=== PATIENT | male | born 1950 | race Caucasian/White ===

== ENCOUNTER 2018-02-16 19:41 | Inpatient (IN) | payer MEDICARE, MEDICAID ==
[~2018-02-16] VITALS: Ht 165.1 cm; Wt 66.7 kg
--- NOTE | 2018-02-16 20:07 | NUR ---
PT BIB PRIVATE AMBULANCE FROM [facility]. PT HERE FOR MEDICAL CLEARANCE. PT IS ON 5150 HOLD GRAVELY DISABLED. UPON ARRIVAL, PT IS UNCOOPERATIVE, GETTING OUT OF BED, AND URINATING ON FLOOR. PT YELLING + SCREAMING AND IS COMBATIVE [facility] STAFF MEMBERS. VSS.
[2018-02-16] MEDS ORDERED: diphenhydrAMINE 50 MG/1 ML VIAL ONE (20:18)
--- NOTE | 2018-02-16 20:18 | NUR ---
PT PLACED ON BILATERAL WRIST RESTRAINTS. PT UNCOOPERATIVE/COMBATIVE WITH STAFF MEMBERS. NO SITTER AVAILABLE FOR PT.
[2018-02-16] MEDS ORDERED: LORAZEPAM 2 MG/1 ML VIAL ONE (20:19)
[2018-02-16] MEDS ORDERED: HALOPERIDOL LACTATE 5 MG/1 ML VIAL ONE (20:19)
[2018-02-16] MEDS ORDERED: HALOPERIDOL LACTATE 5 MG/1 ML VIAL IM ONE (20:30)
[2018-02-16] MEDS ORDERED: LORAZEPAM 2 MG/1 ML VIAL IM ONE (20:30)
[2018-02-16] MEDS ORDERED: diphenhydrAMINE 50 MG/1 ML VIAL IM ONE (20:30)
[2018-02-16 20:33] LABS: BASOPHILS % (AUTO) 0.5 % (0.0-2.0); EOSINOPHILS # (AUTO) 0.4 K/uL (0.0-0.7); EOSINOPHILS % (AUTO) 5.9 % (0.0-7.0); HEMATOCRIT 36.1 % (36.7-47.1); HEMOGLOBIN 11.8 g/dL (12.5-16.3); LYMPHOCYTES # (AUTO) 2.1 K/uL (20.0-40.0); LYMPHOCYTES % (AUTO) 32.8 % (20.5-51.5); MEAN CORPUSCULAR HEMOGLOBIN 30.4 uug (23.8-33.4); MEAN CORPUSCULAR HGB CONC 33 g/dL (32.5-36.3); MEAN CORPUSCULAR VOLUME 92.6 fL (73.0-96.2); MONOCYTES # (AUTO) 0.5 K/uL (2.0-10.0); NEUTROPHILS # (AUTO) 3.5 K/uL (1.8-8.9); NEUTROPHILS % (AUTO) 53.8 % (38.5-71.5); PLATELET COUNT (AUTO) 171 K/uL (152-348); WHITE BLOOD COUNT (AUTO) 6.5 K/uL (3.6-10.2)
[2018-02-16 20:42] LABS: CARBON DIOXIDE 30 mmol/L (21-32); CHLORIDE 105 mmol/L (98-107); CREATININE 0.9 mg/dL (0.6-1.3); GLUCOSE 128 mg/dL (74-106); POTASSIUM 4.2 mmol/L (3.5-5.1); UREA NITROGEN, BLOOD 26 mg/dL (7-18)
[2018-02-16 20:46] LABS: *BILIRUBIN,URIN NEGATIVE (NEGATIVE); *BLOOD, URINE NEGATIVE (NEGATIVE); *CLARITY,URINE CLEAR (CLEAR); *COLOR,URINE YELLOW (YELLOW); *KETONES,URINE NEGATIVE (NEGATIVE); *PROTEIN,URINE NEGATIVE (NEGATIVE); *UROBILINOGEN,URINE 0.2 E.U./dl (NORMAL); ETHANOL < 3 MG/DL (0-0); LEUKOCYTE ESTERASE ,URINE TRACE (NEGATIVE); NITRITE, URINE NEGATIVE (NEGATIVE); PH,URINE 5.5 (5.0-8.0); UGLUCOSE NEGATIVE (NEGATIVE)
[2018-02-16 20:48] LABS: ALANINE AMINOTRANSFERASE 28 U/L (16-63); ALKALINE PHOSPHATASE 82 U/L (50-136); ASPARTATE AMINOTRANSFERASE 16 U/L (15-37); BILIRUBIN,DIRECT 0.1 mg/dL (0.0-0.2); BILIRUBIN,TOTAL 0.4 mg/dL (0.2-1.0)
[2018-02-16 20:49] LABS: ACETAMINOPHEN < 2.0 ug/mL (10-30)
[2018-02-16 20:56] LABS: THYROID STIMULATING HORMONE 1.925 mIU/mL (0.358-3.740)
[2018-02-16 21:14] LABS: *AMPHETAMINE, URINE NEGATIVE (NEGATIVE); *BARBITURATE, URINE NEGATIVE (NEGATIVE); *CANNABINOID, URINE NEGATIVE (NEGATIVE); *COCCAINE, URINE NEGATIVE (NEGATIVE); *OPIATE, URINE NEGATIVE (NEGATIVE); *PHENCYCLIDINE SCREEN,URINE NEGATIVE (NEGATIVE)
--- NOTE | 2018-02-16 21:20 | NUR ---
PAGED [employer] FOR PANEL CALL
[2018-02-16] MEDS ORDERED: MAGN400O6 PO (21:30)
[2018-02-16] MEDS ORDERED: LINA5TAB PO (21:30)
[2018-02-16] MEDS ORDERED: EZET10TA13 PO (21:30)
[2018-02-16] MEDS ORDERED: ASPI81TA31 PO (21:30)
[2018-02-16] MEDS ORDERED: TAMS-3 PO (21:30)
[2018-02-16] MEDS ORDERED: QUET100T PO (21:30)
[2018-02-16] MEDS ORDERED: CHOL500050 PO (21:30)
[2018-02-16] MEDS ORDERED: GLIM1TAB PO (21:30)
[2018-02-16] MEDS ORDERED: LATA2.5D2 LEFTEYE (21:30)
[2018-02-16] MEDS ORDERED: DIVA125C PO ×2 (21:30)
[2018-02-16] MEDS ORDERED: METF10004 PO (21:30)
[2018-02-16] MEDS ORDERED: ACET-2154 PO ×2 (21:30)
[2018-02-16] MEDS ORDERED: METO25TA3 PO (21:30)
[2018-02-16] MEDS ORDERED: ERGO500040 PO (21:30)
[2018-02-16] MEDS ORDERED: BUSP5TAB3 PO (21:30)
[2018-02-16 21:37] LABS: MUCUS,URINE FEW /LPF (0-FEW)
--- NOTE | 2018-02-16 21:58 | NUR ---
PT TAKEN OFF 2 POINT RESTRAINTS. PT RESTING/SLEEPING. VSS. NO ACUTE DISTRESS NOTED.
--- NOTE | 2018-02-16 22:03 | NUR ---
DR. SUDHAKAR HAGEN MD TALKING TO DR. ERVIN CLEMENTS.
--- NOTE | 2018-02-16 22:14 | NUR ---
Pt. admitted to MHU , under care of CLARISA. Belongs List completed. MRSA swab done. Report given to MERE JACKSON
[2018-02-16] MEDS ORDERED: MAG HYDROX/AL HYDROX/SIMETH 30 ML LIQUID UDC PO PRN (23:00)
[2018-02-16] MEDS ORDERED: TEMAZEPAM 7.5 MG CAPSULE PO PRN (23:00)
--- NOTE | 2018-02-17 | NUR ---
ADMISSION NOTES: 67 Y.O. (JAMAICAN-SPEAKING ONLY) MALE BROUGHT TO MHU FROM ER VIA GURNEY, ACCOMPANIED ER STAFF, Pt ON A 5150 HOLD FOR GD. ACCORDING TO THE HOLD, THE MACHINE OPERATOR HOP PICKER AT THE NURSING FACILITY CALLED THE PREVIOUS DAY FOR PET EVALUATION BUT FAMILY REFUSED. TODAY, THE Pt URINATED ON ANOTHER RESIDENT AND THE PSYCHIATRIST, DR. STEWART WHO IS COVERING FOR DR. MARTINEZ, WAS NOTIFIED. FACE TO FACE EVALUATION WAS DONE FOR THIS 67 Y.O. J[place] MALE, WHO HAS HISTORY OF NON-COOPERATION WITH STAFF, AND IS VERBALLY AND PHYSICALLY AGGRESSIVE. BEHAVIOR HAS BEEN PREVIOUSLY MANAGED BUT BEHAVIOR PROBLEMS HAS INCREASED SINCE SEROQUEL WAS DISCONTINUED BY PSYCHIATRIST. Pt IS CONFUSED AND UNABLE TO PROVIDE HISTORY. RN CONCURS WITH THE HOLD. ADVISEMENT AND PATIENT RIGHTS HANDBOOK GIVEN. UPON FACE TO FACE ASSESSMENT, Pt APPEARS TO REFLECT SOME OF THE INFORMATION ON THE HOLD. PER ER NURSE, THE Pt WAS UNCOOPERATIVE IN THE ER AND WAS GIVEN IM INJECTION OF BENADRYL, ATIVAN, AND HALDOL. MEDICATION WAS EFFECTIVE, Pt WAS ASLEEP AND DIFFICULT TO AROUSE UPON ARRIVING TO MHU. Pt WAS UNABLE TO RESPOND TO QUESTIONS. THE NURSE WAS ABLE TO SPEAK TO Pt's DAUGHTER ON THE PHONE, ARISTIDES ALVAREZ , AND WAS ABLE TO OBTAIN SOME INFORMATION REGARDING Pt HISTORY. Pt WAS PREVIOUSLY ADMITTED AT [facility] EARLIER THIS YEAR. Pt BEHAVIOR WAS MANAGED BUT BECAME WORSE AFTER SEROQUEL WAS DISCONTINUED. DURING PHYSICAL ASSESSMENT, NURSE NOTED MULTIPLE SCALY RASHES, DRY WHITE PATCHES, MULTIPLE RED BUMPS ON SKIN. Pt HAS HISTORY OF PSORIASIS AND IS CURRENTLY RECEIVING TREATMENT AT HIS FACILITY. PHOTOS TAKEN AND PLACED IN CHART. Pt APPEARS UNKEMPT, MISSING ALL OF HIS UPPER TEETH, Pt DID NOT COME WITH ANY BELONGINGS, NO DENTURES FOUND. DR. MUELLER AND DR. STEWART WERE BOTH NOTIFIED OF ADMISSION, ORDERS RECEIVED. NO CONTRABANDS WITH Pt, Pt WAS CHANGED BY NURSING STAFF AND SETTLED INTO BED. VS STABLE, NO AGGRESSIVE BEHAVIORS NOTED, NO DISTRESS NOTED, WILL CLOSELY MONITOR Pt BEHAVIOR.
[2018-02-17 07:30] VITALS: BP 124/63
[2018-02-17] MEDS: SULFAMETH/TRIMETH 800/160 MG TABLET PO SCH ×2 (09:15→16:42)
[2018-02-17] MEDS: CLONAZEPAM 0.5 MG TABLET PO PRN ×2 (09:15→14:38)
[2018-02-17] MEDS ORDERED: Medication Not On Formulary EA (Glimepiride (Amaryl) 2 MG) PO SCH (11:15)
[2018-02-17] MEDS: ASPIRIN 81 MG TAB.CHEW PO SCH (12:32)
--- NOTE | 2018-02-17 12:53 | NUR ---
Gps/Rag Baler- Patient is confused, speech incoherent, kept up on his arleen-chair, by the Nurses station, monitored closely for safety, pt. tries to get up from his bed, gait very unsteady, potential for falls. Showered with 2 staff assisting.Patient total care w/ needs, assisted with his meals, patient tries to eat wrapper from his pudding as well as styrofoam ., needed to be supervised or fed. Has difficulty following directions. Meds crushed administered with apple sauce, pt. chew meds. Noted patient sratching noted some red bumps on his thighs and forearms, crusty areas on his knuckels , redness noted
[2018-02-17] MEDS: LINAGLIPTIN 5 MG TABLET PO SCH (14:08)
[2018-02-17] MEDS: LATANOPROST OPHT DROP 2.5 ML BOTTLE LEFTEYE SCH ×2 (14:08→20:23)
--- NOTE | 2018-02-17 14:20 | NUR ---
Gps/Office Executive- Patient's daughter Nicole wilson, will be visiting this pm .
[2018-02-17 15:20] VITALS: BP 110/72
--- NOTE | 2018-02-17 16:20 | NUR ---
Gps/Career Based Intervention Coordinator- Per daughter Nicole, patient does not even recognized her , needing assistance with meals patient does not know what to do with napkin or food place infront of him, difficulty sequencing tasks, tends to lean backwards during ambulation.Meds. were amdministered crushed w/ apple sauce or pudding
[2018-02-17] MEDS: ACETAMINOPHEN 325 MG TABLET PO SCH (16:42)
[2018-02-17] MEDS ORDERED: DEXTROSE 50% 50 ML DISP.SYRIN IV PRN (18:15)
[2018-02-17] MEDS: diphenhydrAMINE 25 MG CAP PO PRN (19:54)
--- NOTE | 2018-02-17 19:55 | NUR ---
RECEIVED PATIENT IN THE HALLWAY SITTING IN A BIA CHAIR NEAR NURSING STATION. HE IS NOTED A/O X 1. HE SPEAKS FARSI AND HE APPEARS NOT TO UNDERSTAND ARMENIAN. HE IS NOTED HYPERVERBAL, ANXIOUS, RESTLESS AND HE IS ALSO NOTED SCRATCHING HIS LEGS. BENADRYL 25MG PO PRN WAS GIVEN FOR ITCHINESS. SAFETY WAS EMPHASIS. WILL CONTINUE TO MONITOR CLOSELY.
[2018-02-17] MEDS: BLOOD SUGAR DIAGNOSTIC 1 EACH STRIP VI SCH (20:03)
[2018-02-17] MEDS: EZETIMIBE 10 MG TABLET PO SCH (20:23)
[2018-02-17] MEDS: TAMSULOSIN HCL 0.4 MG CAP.SR.24H PO SCH (20:23)
[2018-02-17 20:45] VITALS: BP 110/72
[2018-02-17] MEDS ORDERED: PERMETHRIN 5% CREAM 60 GM TUBE TP ONE (21:00)
--- NOTE | 2018-02-17 21:50 | NUR ---
PATIENT NOTED AWAKE, HYPERVERBAL. TEMAZEPAM 7.5MG PO PRN WAS GIVEN FOR INSOMNIA. WILL CONTINUE TO MONITOR.
[2018-02-17] MEDS ORDERED: DIVALPROEX 250 MG TABLET.DR PO SCH (23:30)
--- NOTE | 2018-02-17 23:55 | NUR ---
PER DR. MACKEY, NEW ORDER TO ADMINISTER SEROQUEL 100MG TID AND EXELON 1.5MG PO QHS. FIRST DOSE WERE GIVEN. WILL CONTINUE TO MONITOR.
[2018-02-17] MEDS: QUETIAPINE FUMARATE 100 MG TABLET PO SCH (23:59)
[2018-02-18] MEDS: RIVASTIGMINE TARTRATE 1.5 MG CAPSULE PO SCH ×3 (00:06→21:00)
--- NOTE | 2018-02-18 02:30 | NUR ---
PATIENT IN BED, ELIMITE LOTION WAS APPLIED DIRECTED. WILL CONTINUE TO MONITOR.
[2018-02-18] MEDS: BLOOD SUGAR DIAGNOSTIC 1 EACH STRIP VI SCH ×4 (07:19→21:54)
[2018-02-18 07:30] VITALS: BP 90/55
[2018-02-18] MEDS: METOPROLOL SUCCINATE XL 25 MG TAB.SR.24H PO SCH (08:52)
[2018-02-18] MEDS: GLIMEPIRIDE 2 MG TABLET PO SCH (08:52)
[2018-02-18] MEDS: ASPIRIN 81 MG TAB.CHEW PO SCH (08:53)
[2018-02-18] MEDS: ACETAMINOPHEN 325 MG TABLET PO SCH ×2 (08:53→17:25)
[2018-02-18] MEDS: QUETIAPINE FUMARATE 100 MG TABLET PO SCH ×3 (08:53→17:26)
[2018-02-18] MEDS: SULFAMETH/TRIMETH 800/160 MG TABLET PO SCH ×2 (08:53→17:26)
[2018-02-18] MEDS: LINAGLIPTIN 5 MG TABLET PO SCH (08:55)
[2018-02-18] MEDS: LATANOPROST OPHT DROP 2.5 ML BOTTLE LEFTEYE SCH ×2 (08:56→21:00)
[2018-02-18] MEDS: INSULIN REGULAR, HUMAN 300 UNIT/3 ML VIAL SQ PRN (12:13)
[2018-02-18] MEDS: diphenhydrAMINE 25 MG CAP PO PRN (14:27)
[2018-02-18] MEDS: CLONAZEPAM 0.5 MG TABLET PO PRN (15:03)
[2018-02-18 15:52] VITALS: BP 102/61
[2018-02-18] MEDS: VALPROIC ACID 250 MG CAPSULE PO SCH (17:37)
--- NOTE | 2018-02-18 18:15 | NUR ---
Gps/Service Department Manager- Patient resistive to his care, rashes in his inner thighs patches of bumps upper back and lower ext. Incontinent of large amount of urine x 6 , needed 3 staff to assist pt. in cleaning and hygiene. tries to hit staff during his care.
[2018-02-18] MEDS: TAMSULOSIN HCL 0.4 MG CAP.SR.24H PO SCH (21:00)
[2018-02-18] MEDS: EZETIMIBE 10 MG TABLET PO SCH (21:00)
[2018-02-18 21:25] VITALS: BP 102/61
[2018-02-19] MEDS: CLONAZEPAM 0.5 MG TABLET PO PRN (02:41)
[2018-02-19] MEDS: diphenhydrAMINE 25 MG CAP PO PRN (05:05)
[2018-02-19] MEDS: BLOOD SUGAR DIAGNOSTIC 1 EACH STRIP VI SCH ×4 (06:44→21:18)
[2018-02-19 07:30] VITALS: BP 105/73
[2018-02-19 07:55] LABS: BASOPHILS % (AUTO) 0.6 % (0.0-2.0); EOSINOPHILS # (AUTO) 0.3 K/uL (0.0-0.7); EOSINOPHILS % (AUTO) 5.7 % (0.0-7.0); HEMATOCRIT 35.4 % (36.7-47.1); HEMOGLOBIN 12.2 g/dL (12.5-16.3); LYMPHOCYTES # (AUTO) 1.5 K/uL (20.0-40.0); LYMPHOCYTES % (AUTO) 26.3 % (20.5-51.5); MEAN CORPUSCULAR HEMOGLOBIN 31.6 uug (23.8-33.4); MEAN CORPUSCULAR HGB CONC 34 g/dL (32.5-36.3); MONOCYTES # (AUTO) 0.5 K/uL (2.0-10.0); MONOCYTES % (AUTO) 8.6 % (0.0-11.0); NEUTROPHILS # (AUTO) 3.4 K/uL (1.8-8.9); NEUTROPHILS % (AUTO) 58.8 % (38.5-71.5); PLATELET COUNT (AUTO) 191 K/uL (152-348); RED BLOOD CELL COUNT(AUTO) 3.85 MIL/uL (4.06-5.63); WHITE BLOOD COUNT (AUTO) 5.9 K/uL (3.6-10.2)
[2018-02-19 08:09] LABS: BILIRUBIN,TOTAL 0.5 mg/dL (0.2-1.0); CREATININE 1.1 mg/dL (0.6-1.3); MAGNESIUM 1.9 mg/dL (1.8-2.4); PHOSPHOROUS 3.4 mg/dL (2.5-4.9); POTASSIUM 4.1 mmol/L (3.5-5.1); TOTAL PROTEIN, SERUM 7.6 g/dL (6.4-8.2)
[2018-02-19] MEDS: ASPIRIN 81 MG TAB.CHEW PO SCH (09:07)
[2018-02-19] MEDS: SULFAMETH/TRIMETH 800/160 MG TABLET PO SCH (09:07)
[2018-02-19] MEDS: ACETAMINOPHEN 325 MG TABLET PO SCH ×2 (09:07→17:05)
[2018-02-19] MEDS: GLIMEPIRIDE 2 MG TABLET PO SCH (09:07)
[2018-02-19] MEDS: VALPROIC ACID 250 MG CAPSULE PO SCH ×3 (09:07→17:05)
[2018-02-19] MEDS: RIVASTIGMINE TARTRATE 1.5 MG CAPSULE PO SCH ×2 (09:07→20:38)
[2018-02-19] MEDS: QUETIAPINE FUMARATE 100 MG TABLET PO SCH ×3 (09:07→17:06)
[2018-02-19] MEDS: LINAGLIPTIN 5 MG TABLET PO SCH (09:07)
[2018-02-19] MEDS: METOPROLOL SUCCINATE XL 25 MG TAB.SR.24H PO SCH (09:08)
[2018-02-19] MEDS: CLOBETASOL PROPIONATE 0.05% OINT 15 GM TUBE TOP SCH ×2 (15:07→21:44)
[2018-02-19] MEDS: Z GUARD REMEDY PASTE 57 GM TUBE TOP PRN (15:07)
--- NOTE | 2018-02-19 16:13 | NUR ---
Initial DC Plan: Patient currently resides at [facility] [[address] [place] [address]; [place] TIFFANIE spoke with Brittny at [facility] who stated they can accept patient back at the facility. TIFFANIE will follow up with MD, patient, and patient's daughter Gail [[phone]] to discuss most appropriate discharge plans. SW will form a safe and proper discharge.
[2018-02-19 16:50] VITALS: BP 110/72
--- NOTE | 2018-02-19 19:45 | NUR ---
RECEIVED PATIENT IN HIS ROOM IN BED ASLEEP BUT EASILY AROUSABLE. PATIENT CONTINUE RESISTED TO CARE AND ADLS. FARSI SPEAKER. COMPLIANT WITH MEDICATION REGIMENT AT THIS TIME. SAFETY WAS EMPHASIS, BED AT LOWEST POSITION WITH WHEELS LOCKED, ALARM ON AND FREQUENT HEAD CHECKS. WILL CONTINUE TO MONITOR.
--- NOTE | 2018-02-19 20:30 | NUR ---
PATIENT NOTED WITH B/P 93/49MMHG PULSE 64BPM AND O2 SAT AT 95%. BLOOD GLUCOSE QHS IS 171. PATIENT WAS GIVEN FLUIDS, LEGS OF BED WERE ELEVATED. PATIENT RESPONSIVE IN NO DISTRESS. WILL CONTINUE TO MONITOR CLOSELY.
[2018-02-19] MEDS: EZETIMIBE 10 MG TABLET PO SCH (20:38)
[2018-02-19] MEDS: TAMSULOSIN HCL 0.4 MG CAP.SR.24H PO SCH (20:38)
--- NOTE | 2018-02-19 21:30 | NUR ---
B/P WAS RECHECKED B/P 107/54,MMHG, PULSE 64BPM AND O2SAT 96%. PATIENT IN NO DISTRESS. HE WAS ABLE TO COMPLY WITH [facility] MEDICATION REGIMENT. WILL CONTINUE TO MONITOR CLOSELY.
[2018-02-19] MEDS: Z GUARD REMEDY PASTE 57 GM TUBE TOP SCH (21:44)
[2018-02-19] MEDS: LATANOPROST OPHT DROP 2.5 ML BOTTLE LEFTEYE SCH (21:44)
[2018-02-19] MEDS: INSULIN REGULAR, HUMAN 300 UNIT/3 ML VIAL SQ PRN (21:46)
[2018-02-19 21:52] VITALS: BP 93/49
[2018-02-20 00:03] VITALS: BP 107/54
[2018-02-20] MEDS: MAGNESIUM HYDROXIDE 30 ML LIQUID UDC PO PRN (06:20)
[2018-02-20] MEDS: diphenhydrAMINE 25 MG CAP PO PRN ×2 (06:40→12:54)
[2018-02-20] MEDS: BLOOD SUGAR DIAGNOSTIC 1 EACH STRIP VI SCH ×4 (07:19→20:43)
--- NOTE | 2018-02-20 07:25 | NUR ---
PATIENT SLEPT FOR APPROX 10 HRS THROUGH THE NIGHT. A SHOWER WAS GIVEN THIS MORNING. NO AGGRESSIVE OF COMBATIVE BX WAS NOTED DURING CARE. PATIENT NOTED SCRATCHING HIS ARMS. BENADRYL 25MG PO PRN WAS GIVEN FOR ITCHINESS. IT WAS ALSO NOTED THAT PATIENT HAD NOT HAVE A BM FOR THREE DAYS, SINCE ADMISSION. MOM 30ML PO PRN WAS GIVEN FOR CONSTIPATION, WILL CONTINUE TO MONITOR CLOSELY.
[2018-02-20 07:30] VITALS: BP 97/62
[2018-02-20] MEDS: ACETAMINOPHEN 325 MG TABLET PO SCH ×2 (08:10→16:37)
[2018-02-20] MEDS: ASPIRIN 81 MG TAB.CHEW PO SCH (08:11)
[2018-02-20] MEDS: LINAGLIPTIN 5 MG TABLET PO SCH (08:11)
[2018-02-20] MEDS: VALPROIC ACID 250 MG CAPSULE PO SCH ×3 (08:11→16:36)
[2018-02-20] MEDS: QUETIAPINE FUMARATE 100 MG TABLET PO SCH ×3 (08:11→16:37)
[2018-02-20] MEDS: RIVASTIGMINE TARTRATE 1.5 MG CAPSULE PO SCH ×2 (08:12→20:40)
[2018-02-20] MEDS: GLIMEPIRIDE 2 MG TABLET PO SCH (08:12)
[2018-02-20] MEDS: METOPROLOL SUCCINATE XL 25 MG TAB.SR.24H PO SCH (08:12)
[2018-02-20] MEDS: CLOBETASOL PROPIONATE 0.05% OINT 15 GM TUBE TOP SCH ×2 (08:13→20:42)
[2018-02-20] MEDS: Z GUARD REMEDY PASTE 57 GM TUBE TOP SCH ×2 (08:13→20:42)
[2018-02-20] MEDS: ERGOCALCIFEROL 50,000 UNIT CAPSULE PO SCH (10:56)
[2018-02-20] MEDS: CLONAZEPAM 0.5 MG TABLET PO PRN (12:54)
--- NOTE | 2018-02-20 13:52 | NUR ---
Received patient sitting in arleen chair. Alert, verbally responsive and confuse. Agitation and uncooperative noted. Continue on seroquel 125mg for psychosis with good effect. Continue taking medicatio, crushed with apple sauce. not aggressive during rounds. will continue monitor
[2018-02-20 15:50] VITALS: BP 109/61
[2018-02-20 19:30] VITALS: BP 93/49
[2018-02-20] MEDS: TAMSULOSIN HCL 0.4 MG CAP.SR.24H PO SCH (20:40)
[2018-02-20] MEDS: EZETIMIBE 10 MG TABLET PO SCH (20:40)
[2018-02-20] MEDS: LATANOPROST OPHT DROP 2.5 ML BOTTLE LEFTEYE SCH (20:41)
[2018-02-20] MEDS: INSULIN REGULAR, HUMAN 300 UNIT/3 ML VIAL SQ PRN (20:54)
[2018-02-21] MEDS: BLOOD SUGAR DIAGNOSTIC 1 EACH STRIP VI SCH ×4 (06:32→20:37)
[2018-02-21 07:30] VITALS: BP 103/71
[2018-02-21] MEDS: GLIMEPIRIDE 2 MG TABLET PO SCH (08:38)
[2018-02-21] MEDS: METOPROLOL SUCCINATE XL 25 MG TAB.SR.24H PO SCH (08:46)
[2018-02-21] MEDS: VALPROIC ACID 250 MG CAPSULE PO SCH (08:46)
[2018-02-21] MEDS: ACETAMINOPHEN 325 MG TABLET PO SCH (08:47)
[2018-02-21] MEDS: RIVASTIGMINE TARTRATE 1.5 MG CAPSULE PO SCH ×2 (08:47→20:36)
[2018-02-21] MEDS: ASPIRIN 81 MG TAB.CHEW PO SCH (08:47)
[2018-02-21] MEDS: LINAGLIPTIN 5 MG TABLET PO SCH (08:48)
[2018-02-21] MEDS: QUETIAPINE FUMARATE 100 MG TABLET PO SCH ×3 (08:48→17:25)
[2018-02-21] MEDS: Z GUARD REMEDY PASTE 57 GM TUBE TOP SCH ×2 (10:00→20:37)
[2018-02-21] MEDS: CLOBETASOL PROPIONATE 0.05% OINT 15 GM TUBE TOP SCH ×2 (10:01→20:37)
[2018-02-21] MEDS: VALPROIC ACID 250 MG/5 ML LIQUID UDC PO SCH ×2 (13:29→17:25)
[2018-02-21 15:00] VITALS: BP 158/68
[2018-02-21] MEDS: CLONAZEPAM 0.5 MG TABLET PO PRN (15:33)
--- NOTE | 2018-02-21 19:30 | NUR ---
RECEIVED PATIENT IN HIS ROOM IN BED ASLEEP BUT EASILY AROUSABLE. PATIENT NOTED LESS COMBATIVE AND LESS RESISTED TO CARE AND ADLS. FARSI SPEAKER. APPEARS NOT TO UNDERSTAND ITALIAN. V/S STABLE. COMPLIANT WITH MEDICATION REGIMENT AND ACCU CHECKS. SAFETY WAS EMPHASIS, BED AT LOWEST POSITION WITH WHEELS LOCKED, ALARM ON AND FREQUENT HEAD CHECKS. WILL CONTINUE TO MONITOR.
[2018-02-21 20:18] VITALS: BP 106/63
[2018-02-21] MEDS: EZETIMIBE 10 MG TABLET PO SCH (20:36)
[2018-02-21] MEDS: TAMSULOSIN HCL 0.4 MG CAP.SR.24H PO SCH (20:36)
[2018-02-21] MEDS: LATANOPROST OPHT DROP 2.5 ML BOTTLE LEFTEYE SCH (20:38)
[2018-02-21] MEDS: INSULIN REGULAR, HUMAN 300 UNIT/3 ML VIAL SQ PRN (21:37)
[2018-02-22] MEDS: MAGNESIUM HYDROXIDE 30 ML LIQUID UDC PO PRN (06:32)
[2018-02-22] MEDS: BLOOD SUGAR DIAGNOSTIC 1 EACH STRIP VI SCH ×4 (06:32→21:09)
--- NOTE | 2018-02-22 06:38 | NUR ---
PT SLEPT FOR APPROX 9.30 HRS THROUGH THE NIGHT. SHOWER WAS GIVEN, NOTED LESS AGITATED LESS COMBATIVE. MOM 30ML PO PRN WAS GIVEN FOR CONSTIPATION. PATIENT NOTED WITH FLIGHT OF IDEAS. WILL CONTINUE TO MONITOR.
[2018-02-22] MEDS: METOPROLOL SUCCINATE XL 25 MG TAB.SR.24H PO SCH (09:00)
[2018-02-22 09:02] VITALS: BP 100/72
[2018-02-22] MEDS: VALPROIC ACID 250 MG/5 ML LIQUID UDC PO SCH ×4 (09:11→21:08)
[2018-02-22] MEDS: GLIMEPIRIDE 2 MG TABLET PO SCH (09:12)
[2018-02-22] MEDS: RIVASTIGMINE TARTRATE 1.5 MG CAPSULE PO SCH (09:12)
[2018-02-22] MEDS: LINAGLIPTIN 5 MG TABLET PO SCH (09:13)
[2018-02-22] MEDS: QUETIAPINE FUMARATE 100 MG TABLET PO SCH ×4 (09:13→21:07)
[2018-02-22] MEDS: ASPIRIN 81 MG TAB.CHEW PO SCH (09:13)
[2018-02-22] MEDS: Z GUARD REMEDY PASTE 57 GM TUBE TOP SCH ×2 (09:14→21:08)
[2018-02-22] MEDS: CLOBETASOL PROPIONATE 0.05% OINT 15 GM TUBE TOP SCH ×2 (09:14→21:08)
[2018-02-22 16:54] VITALS: BP 142/70
[2018-02-22 20:00] VITALS: BP 129/69
[2018-02-22] MEDS: EZETIMIBE 10 MG TABLET PO SCH (21:06)
[2018-02-22] MEDS: TAMSULOSIN HCL 0.4 MG CAP.SR.24H PO SCH (21:08)
[2018-02-22] MEDS: LATANOPROST OPHT DROP 2.5 ML BOTTLE LEFTEYE SCH (21:08)
[2018-02-22] MEDS: INSULIN REGULAR, HUMAN 300 UNIT/3 ML VIAL SQ PRN (21:09)
[2018-02-23] MEDS: BLOOD SUGAR DIAGNOSTIC 1 EACH STRIP VI SCH ×4 (06:45→20:53)
[2018-02-23] MEDS: QUETIAPINE FUMARATE 100 MG TABLET PO SCH ×4 (09:02→20:42)
[2018-02-23] MEDS: ASPIRIN 81 MG TAB.CHEW PO SCH (09:02)
[2018-02-23] MEDS: GLIMEPIRIDE 2 MG TABLET PO SCH (09:02)
[2018-02-23] MEDS: METOPROLOL SUCCINATE XL 25 MG TAB.SR.24H PO SCH (09:08)
[2018-02-23] MEDS: LINAGLIPTIN 5 MG TABLET PO SCH (09:09)
[2018-02-23] MEDS: VALPROIC ACID 250 MG/5 ML LIQUID UDC PO SCH ×4 (09:09→20:36)
[2018-02-23] MEDS: CLOBETASOL PROPIONATE 0.05% OINT 15 GM TUBE TOP SCH ×2 (09:10→20:57)
[2018-02-23] MEDS: Z GUARD REMEDY PASTE 57 GM TUBE TOP SCH ×2 (09:10→20:48)
[2018-02-23] MEDS: INSULIN REGULAR, HUMAN 300 UNIT/3 ML VIAL SQ PRN ×2 (13:03→20:54)
[2018-02-23 15:34] VITALS: BP 93/67
[2018-02-23 20:21] VITALS: BP 95/52
[2018-02-23] MEDS: TAMSULOSIN HCL 0.4 MG CAP.SR.24H PO SCH (20:36)
[2018-02-23] MEDS: EZETIMIBE 10 MG TABLET PO SCH (20:40)
[2018-02-23] MEDS: LATANOPROST OPHT DROP 2.5 ML BOTTLE LEFTEYE SCH (20:57)
[2018-02-24] MEDS: BLOOD SUGAR DIAGNOSTIC 1 EACH STRIP VI SCH ×4 (06:22→20:47)
--- NOTE | 2018-02-24 06:47 | NUR ---
GPS: REMAIN CALM AND UNCOOPERATIVE WITH ADL'S. COMPLIANT WITH MEDICATIONS.ASSISTED WITH ADL'S.PATIENT IS INCONTINENT. GOOD SANDRA CARE GIVEN. CONTINUE MONITORING FOR SAFETY.
[2018-02-24 08:00] VITALS: BP 105/65
[2018-02-24] MEDS: ASPIRIN 81 MG TAB.CHEW PO SCH (08:54)
[2018-02-24] MEDS: CLOBETASOL PROPIONATE 0.05% OINT 15 GM TUBE TOP SCH ×2 (08:54→20:28)
[2018-02-24] MEDS: LINAGLIPTIN 5 MG TABLET PO SCH (08:54)
[2018-02-24] MEDS: QUETIAPINE FUMARATE 100 MG TABLET PO SCH ×4 (08:54→20:28)
[2018-02-24] MEDS: Z GUARD REMEDY PASTE 57 GM TUBE TOP SCH ×2 (08:54→20:31)
[2018-02-24] MEDS: VALPROIC ACID 250 MG/5 ML LIQUID UDC PO SCH ×4 (08:55→20:28)
[2018-02-24] MEDS: GLIMEPIRIDE 2 MG TABLET PO SCH (08:55)
[2018-02-24] MEDS: diphenhydrAMINE 25 MG CAP PO PRN (08:55)
[2018-02-24] MEDS: METOPROLOL SUCCINATE XL 25 MG TAB.SR.24H PO SCH (08:55)
--- NOTE | 2018-02-24 14:34 | NUR ---
GPS.RN- patient anxious and restless. assisted back to bed, very restless, patient find upside down in bed frequently moving patient high risk patient field supervisor aware of sitter status order. patient assisted back to gerichair sitting next to nursing station.
[2018-02-24] MEDS: ACETAMINOPHEN 325 MG TABLET PO PRN (16:17)
[2018-02-24 16:35] VITALS: BP 113/66
[2018-02-24] MEDS: INSULIN REGULAR, HUMAN 300 UNIT/3 ML VIAL SQ PRN ×2 (17:19→20:50)
[2018-02-24 20:00] VITALS: BP 99/46
[2018-02-24] MEDS: TAMSULOSIN HCL 0.4 MG CAP.SR.24H PO SCH (20:28)
[2018-02-24] MEDS: LATANOPROST OPHT DROP 2.5 ML BOTTLE LEFTEYE SCH (20:28)
[2018-02-24] MEDS: EZETIMIBE 10 MG TABLET PO SCH (20:28)
[2018-02-25] MEDS: BLOOD SUGAR DIAGNOSTIC 1 EACH STRIP VI SCH ×4 (06:46→21:07)
--- NOTE | 2018-02-25 06:55 | NUR ---
GPS: Pt.was combative,resistive during care earlier. Re-directed prn. Safe environment provided. 1:1 sitter continues. Will continue to monitor.
[2018-02-25 07:30] VITALS: BP 111/62
[2018-02-25] MEDS: LINAGLIPTIN 5 MG TABLET PO SCH (08:41)
[2018-02-25] MEDS: CLOBETASOL PROPIONATE 0.05% OINT 15 GM TUBE TOP SCH ×2 (08:41→21:09)
[2018-02-25] MEDS: QUETIAPINE FUMARATE 100 MG TABLET PO SCH ×4 (08:41→21:08)
[2018-02-25] MEDS: VALPROIC ACID 250 MG/5 ML LIQUID UDC PO SCH ×4 (08:41→21:08)
[2018-02-25] MEDS: diphenhydrAMINE 25 MG CAP PO PRN ×2 (08:41→15:32)
[2018-02-25] MEDS: ASPIRIN 81 MG TAB.CHEW PO SCH (08:41)
[2018-02-25] MEDS: GLIMEPIRIDE 2 MG TABLET PO SCH (08:41)
[2018-02-25] MEDS: INSULIN REGULAR, HUMAN 300 UNIT/3 ML VIAL SQ PRN ×2 (08:42→21:11)
[2018-02-25] MEDS: Z GUARD REMEDY PASTE 57 GM TUBE TOP SCH ×2 (08:42→21:08)
[2018-02-25] MEDS: METOPROLOL SUCCINATE XL 25 MG TAB.SR.24H PO SCH (08:44)
[2018-02-25] MEDS: ACETAMINOPHEN 325 MG TABLET PO PRN (12:17)
[2018-02-25] MEDS: CLONAZEPAM 0.5 MG TABLET PO PRN (15:32)
[2018-02-25 16:45] VITALS: BP 126/73
[2018-02-25 20:21] VITALS: BP 102/56
[2018-02-25] MEDS: EZETIMIBE 10 MG TABLET PO SCH (21:08)
[2018-02-25] MEDS: TAMSULOSIN HCL 0.4 MG CAP.SR.24H PO SCH (21:08)
[2018-02-25] MEDS: LATANOPROST OPHT DROP 2.5 ML BOTTLE LEFTEYE SCH (21:08)
[2018-02-26] MEDS: BLOOD SUGAR DIAGNOSTIC 1 EACH STRIP VI SCH ×4 (06:58→20:42)
[2018-02-26 07:11] LABS: BASOPHILS % (AUTO) 0.6 % (0.0-2.0); EOSINOPHILS # (AUTO) 0.3 K/uL (0.0-0.7); EOSINOPHILS % (AUTO) 5.6 % (0.0-7.0); HEMATOCRIT 36.1 % (36.7-47.1); HEMOGLOBIN 12.1 g/dL (12.5-16.3); LYMPHOCYTES # (AUTO) 2.1 K/uL (20.0-40.0); LYMPHOCYTES % (AUTO) 33.8 % (20.5-51.5); MEAN CORPUSCULAR HEMOGLOBIN 31.2 uug (23.8-33.4); MEAN CORPUSCULAR HGB CONC 34 g/dL (32.5-36.3); MEAN CORPUSCULAR VOLUME 92.9 fL (73.0-96.2); MONOCYTES # (AUTO) 0.5 K/uL (2.0-10.0); MONOCYTES % (AUTO) 8.2 % (0.0-11.0); NEUTROPHILS # (AUTO) 3.2 K/uL (1.8-8.9); NEUTROPHILS % (AUTO) 51.8 % (38.5-71.5); PLATELET COUNT (AUTO) 231 K/uL (152-348); RED BLOOD CELL COUNT(AUTO) 3.89 MIL/uL (4.06-5.63); WHITE BLOOD COUNT (AUTO) 6.1 K/uL (3.6-10.2)
[2018-02-26 07:17] LABS: BILIRUBIN,TOTAL 0.3 mg/dL (0.2-1.0); MAGNESIUM 1.8 mg/dL (1.8-2.4); POTASSIUM 4.5 mmol/L (3.5-5.1); TOTAL PROTEIN, SERUM 6.9 g/dL (6.4-8.2)
[2018-02-26 07:30] VITALS: BP 116/68
[2018-02-26] MEDS: GLIMEPIRIDE 2 MG TABLET PO SCH (07:58)
[2018-02-26] MEDS: diphenhydrAMINE 25 MG CAP PO PRN (07:58)
[2018-02-26] MEDS: LINAGLIPTIN 5 MG TABLET PO SCH (08:00)
[2018-02-26] MEDS: QUETIAPINE FUMARATE 100 MG TABLET PO SCH ×4 (08:00→20:33)
[2018-02-26] MEDS: ASPIRIN 81 MG TAB.CHEW PO SCH (08:00)
[2018-02-26] MEDS: VALPROIC ACID 250 MG/5 ML LIQUID UDC PO SCH ×3 (08:00→17:10)
[2018-02-26] MEDS: Z GUARD REMEDY PASTE 57 GM TUBE TOP SCH ×2 (08:01→20:33)
[2018-02-26] MEDS: CLOBETASOL PROPIONATE 0.05% OINT 15 GM TUBE TOP SCH ×2 (08:02→20:32)
[2018-02-26] MEDS: METOPROLOL SUCCINATE XL 25 MG TAB.SR.24H PO SCH (08:03)
--- NOTE | 2018-02-26 16:01 | NUR ---
Discharge Planning Note: Patient currently resides at [facility] [phone] TIFFANIE faxed inquiries to SNFs for potential alternative placement for patient. Patient's daughter Nicole [[phone]] asked if TIFFANIE could find placement closer to her in [place], but would be agreeable to patient returning to [facility]. TIFFANIE faxed inquiries to [facility] [phone]] and [facility] [phone]]. However, facilities stated they cannot accept patient due to his behavior. Addendum: 03/05/18 at 1009 by DAMASO MORENO TIFFANIE left a voicemail for patient's daughter Nicole [[phone]] to notify her of patient's discharge time. TIFFANIE also referred Nicole to [facility], intermediate options, if she decides to seek alternative placement for patient in the future.
[2018-02-26] MEDS ORDERED: VALPROIC ACID 250 MG/5 ML LIQUID UDC PO SCH ×2 (17:00→20:00)
[2018-02-26 17:19] VITALS: BP 102/80
[2018-02-26 20:21] VITALS: BP 109/72
[2018-02-26] MEDS: EZETIMIBE 10 MG TABLET PO SCH (20:32)
[2018-02-26] MEDS: TAMSULOSIN HCL 0.4 MG CAP.SR.24H PO SCH (20:32)
[2018-02-26] MEDS: LATANOPROST OPHT DROP 2.5 ML BOTTLE LEFTEYE SCH (20:43)
[2018-02-26] MEDS: INSULIN REGULAR, HUMAN 300 UNIT/3 ML VIAL SQ PRN (20:44)
[2018-02-27] MEDS: MAGNESIUM HYDROXIDE 30 ML LIQUID UDC PO PRN ×2 (05:45→17:23)
[2018-02-27] MEDS: Z GUARD REMEDY PASTE 57 GM TUBE TOP PRN ×2 (05:48→13:43)
[2018-02-27] MEDS: BLOOD SUGAR DIAGNOSTIC 1 EACH STRIP VI SCH ×5 (06:37→20:48)
--- NOTE | 2018-02-27 06:40 | NUR ---
GPS: Pt.continues to be uncooperative,combative during care despite explanation of procedure. Accucheck at this time is 111mg/dl. 1:1 sitter continues for safety. Reality re-orientation provided.
[2018-02-27 07:30] VITALS: BP 105/65
[2018-02-27] MEDS: LINAGLIPTIN 5 MG TABLET PO SCH (08:16)
[2018-02-27] MEDS: VALPROIC ACID 250 MG/5 ML LIQUID UDC PO SCH ×4 (08:16→20:34)
[2018-02-27] MEDS: GLIMEPIRIDE 2 MG TABLET PO SCH (08:16)
[2018-02-27] MEDS: diphenhydrAMINE 25 MG CAP PO PRN ×2 (08:16→17:22)
[2018-02-27] MEDS: ASPIRIN 81 MG TAB.CHEW PO SCH (08:16)
[2018-02-27] MEDS: Z GUARD REMEDY PASTE 57 GM TUBE TOP SCH ×2 (08:17→20:34)
[2018-02-27] MEDS: QUETIAPINE FUMARATE 100 MG TABLET PO SCH ×4 (08:17→20:34)
[2018-02-27] MEDS: METOPROLOL SUCCINATE XL 25 MG TAB.SR.24H PO SCH (08:19)
[2018-02-27] MEDS: CLOBETASOL PROPIONATE 0.05% OINT 15 GM TUBE TOP SCH ×2 (08:20→20:34)
--- NOTE | 2018-02-27 08:29 | NUR ---
DC Note: Patient will be discharged to [facility] [[address] [place] [address]; ] via ambulance. TIFFANIE spoke with Brittny at [facility] who confirmed they can accept patient today. TIFFANIE spoke with patient's daughter Nicole [[phone]] who is aware and agreeable to discharge plans. Patient is alert and oriented x1 and is confused. Patient will follow up with Dr. Alcantara (Psychiatrist) and Dr. Rutherford (Patient Service Technician Pst) at the facility.
[2018-02-27] MEDS: ERGOCALCIFEROL 50,000 UNIT CAPSULE PO SCH (11:20)
[2018-02-27] MEDS: INSULIN REGULAR, HUMAN 300 UNIT/3 ML VIAL SQ PRN (11:55)
[2018-02-27] MEDS ORDERED: QUETIAPINE FUMARATE 100 MG TABLET PO SCH (13:00)
[2018-02-27] MEDS: QUETIAPINE FUMARATE 25 MG TABLET PO SCH ×3 (13:42→20:33)
[2018-02-27] MEDS: CLONAZEPAM 0.5 MG TABLET PO PRN (13:42)
--- NOTE | 2018-02-27 14:03 | NUR ---
GPS./RN- PATIENT CONTINUES ANXIOUS AND COMBATIVE WHEN RENDERING CARE. DR MARTINEZ CANCELLED DISCHARGE FOR TODAY. MEDICATIONS REVISED AND ADJUSTED.
[2018-02-27 17:01] VITALS: BP 105/69
--- NOTE | 2018-02-27 18:26 | NUR ---
GPS: Nursing Notes: Thought Disorder: Patient is awake and responding to his name, impaired judgment, confused, disoriented, overly disruptive by constantly shouting, striking out at staff when trying to change his wet diaper, trying to bump his head against staff, swinging his elbows to staff, it takes 3 staff to change his wet diaper, episodes of swinging his arms at staff, banging on the table at times staring at the ceiling and shouting, internally preoccupied, continue with 1:1 sitter for safety, unable to formulate a plan for self care, continue with treatment plan.
[2018-02-27 19:30] VITALS: BP 102/65
[2018-02-27] MEDS: TAMSULOSIN HCL 0.4 MG CAP.SR.24H PO SCH (20:33)
[2018-02-27] MEDS: EZETIMIBE 10 MG TABLET PO SCH (20:33)
[2018-02-27] MEDS: LATANOPROST OPHT DROP 2.5 ML BOTTLE LEFTEYE SCH (20:34)
[2018-02-28] MEDS: Z GUARD REMEDY PASTE 57 GM TUBE TOP PRN (01:29)
[2018-02-28] MEDS: MAGNESIUM HYDROXIDE 30 ML LIQUID UDC PO PRN (01:29)
[2018-02-28] MEDS: BLOOD SUGAR DIAGNOSTIC 1 EACH STRIP VI SCH ×4 (06:46→21:56)
[2018-02-28 07:30] VITALS: BP 98/67
[2018-02-28] MEDS: METOPROLOL SUCCINATE XL 25 MG TAB.SR.24H PO SCH (09:00)
[2018-02-28] MEDS: VALPROIC ACID 250 MG/5 ML LIQUID UDC PO SCH ×4 (09:02→21:16)
[2018-02-28] MEDS: QUETIAPINE FUMARATE 100 MG TABLET PO SCH ×4 (09:02→21:22)
[2018-02-28] MEDS: QUETIAPINE FUMARATE 25 MG TABLET PO SCH ×4 (09:02→21:23)
[2018-02-28] MEDS: LINAGLIPTIN 5 MG TABLET PO SCH (09:02)
[2018-02-28] MEDS: ASPIRIN 81 MG TAB.CHEW PO SCH (09:03)
[2018-02-28] MEDS: GLIMEPIRIDE 2 MG TABLET PO SCH (09:03)
[2018-02-28] MEDS: CLOBETASOL PROPIONATE 0.05% OINT 15 GM TUBE TOP SCH ×2 (09:12→21:24)
[2018-02-28] MEDS: Z GUARD REMEDY PASTE 57 GM TUBE TOP SCH ×2 (09:13→21:45)
[2018-02-28] MEDS ORDERED: BISACODYL 10 MG SUPP.RECT RC PRN (10:45)
[2018-02-28] MEDS ORDERED: LORAZEPAM 0.5 MG TABLET PO PRN (11:30)
[2018-02-28] MEDS ORDERED: VALPROIC ACID 250 MG/5 ML LIQUID UDC PO SCH (13:00)
[2018-02-28 16:14] VITALS: BP 128/78
[2018-02-28 20:24] VITALS: BP 101/63
[2018-02-28] MEDS: DOCUSATE SODIUM 100 MG CAPSULE PO SCH (21:17)
[2018-02-28] MEDS: LATANOPROST OPHT DROP 2.5 ML BOTTLE LEFTEYE SCH (21:17)
[2018-02-28] MEDS: TAMSULOSIN HCL 0.4 MG CAP.SR.24H PO SCH (21:18)
[2018-02-28] MEDS: EZETIMIBE 10 MG TABLET PO SCH (21:23)
--- NOTE | 2018-02-28 23:45 | NUR ---
RECEIVED PATIENT IN A BIA CHAIR IN THE [address].HE APPEARED CONFUSED, DISORIENTED, AND WAS UNCOOPERATIVE WITH STAFF FOR HIS CARE. HE TOOK HIS MEDS WITH OCCASIONALLY STRIKING OUT AT STAFF.HE HAS 1;1 SITTER FOR SAFETY.FACIAL GRIMACES DID NOT DENOTE PAIN OR DISCOMFORT. WILL CONTINUE TO MONITOR.
[2018-03-01] MEDS: BLOOD SUGAR DIAGNOSTIC 1 EACH STRIP VI SCH ×4 (06:40→21:33)
--- NOTE | 2018-03-01 06:51 | NUR ---
SLEPT WELL THROUGHOUT THE NIGHT FOR APPROX.9'30HRS. HAS 1;1 SITTER FOR SAFETY. BLOOD SUGE\UR LEVELS CHECKED AND WNL
[2018-03-01 07:30] VITALS: BP 123/63
[2018-03-01] MEDS: QUETIAPINE FUMARATE 25 MG TABLET PO SCH (08:10)
[2018-03-01] MEDS: ASPIRIN 81 MG TAB.CHEW PO SCH (08:10)
[2018-03-01] MEDS: LINAGLIPTIN 5 MG TABLET PO SCH (08:10)
[2018-03-01] MEDS: QUETIAPINE FUMARATE 100 MG TABLET PO SCH (08:11)
[2018-03-01] MEDS: DOCUSATE SODIUM 100 MG CAPSULE PO SCH ×2 (08:11→21:00)
[2018-03-01] MEDS: GLIMEPIRIDE 2 MG TABLET PO SCH (08:11)
[2018-03-01] MEDS: METOPROLOL SUCCINATE XL 25 MG TAB.SR.24H PO SCH (08:11)
[2018-03-01] MEDS: VALPROIC ACID 250 MG/5 ML LIQUID UDC PO SCH ×4 (08:11→21:00)
[2018-03-01] MEDS: Z GUARD REMEDY PASTE 57 GM TUBE TOP SCH ×2 (08:24→21:00)
[2018-03-01] MEDS: CLOBETASOL PROPIONATE 0.05% OINT 15 GM TUBE TOP SCH ×2 (08:26→21:00)
[2018-03-01 10:07] LABS: BASOPHILS % (AUTO) 0.5 % (0.0-2.0); EOSINOPHILS # (AUTO) 0.4 K/uL (0.0-0.7); EOSINOPHILS % (AUTO) 6.9 % (0.0-7.0); HEMATOCRIT 35.5 % (36.7-47.1); HEMOGLOBIN 12.1 g/dL (12.5-16.3); LYMPHOCYTES # (AUTO) 1.7 K/uL (20.0-40.0); LYMPHOCYTES % (AUTO) 30.6 % (20.5-51.5); MEAN CORPUSCULAR HEMOGLOBIN 31.8 uug (23.8-33.4); MEAN CORPUSCULAR HGB CONC 34 g/dL (32.5-36.3); MEAN CORPUSCULAR VOLUME 93.2 fL (73.0-96.2); MONOCYTES # (AUTO) 0.5 K/uL (2.0-10.0); MONOCYTES % (AUTO) 9.6 % (0.0-11.0); NEUTROPHILS # (AUTO) 2.8 K/uL (1.8-8.9); NEUTROPHILS % (AUTO) 52.4 % (38.5-71.5); PLATELET COUNT (AUTO) 199 K/uL (152-348); RED BLOOD CELL COUNT(AUTO) 3.81 MIL/uL (4.06-5.63); WHITE BLOOD COUNT (AUTO) 5.4 K/uL (3.6-10.2)
[2018-03-01 10:24] LABS: BILIRUBIN,TOTAL 0.4 mg/dL (0.2-1.0); CREATININE 0.9 mg/dL (0.6-1.3); POTASSIUM 4.4 mmol/L (3.5-5.1); TOTAL PROTEIN, SERUM 6.9 g/dL (6.4-8.2)
[2018-03-01] MEDS: QUETIAPINE FUMARATE 200 MG TABLET PO SCH ×3 (13:11→21:00)
[2018-03-01 13:44] LABS: *BILIRUBIN,URIN NEGATIVE (NEGATIVE); *BLOOD, URINE 2+ (NEGATIVE); *CLARITY,URINE CLEAR (CLEAR); *COLOR,URINE YELLOW (YELLOW); *KETONES,URINE NEGATIVE (NEGATIVE); *PROTEIN,URINE NEGATIVE (NEGATIVE); *UROBILINOGEN,URINE 0.2 E.U./dl (NORMAL); LEUKOCYTE ESTERASE ,URINE TRACE (NEGATIVE); NITRITE, URINE NEGATIVE (NEGATIVE); UGLUCOSE NEGATIVE (NEGATIVE)
[2018-03-01 13:56] LABS: BACTERIA,URINE FEW /HPF (NONE SEEN); RBC,URINE 20-50 /HPF (0-3); SQUAMOUS EPITHELIAL CELL,UR FEW /HPF (NONE SEEN)
[2018-03-01 15:23] VITALS: BP 110/74
[2018-03-01 20:56] VITALS: BP 106/62
[2018-03-01] MEDS: TAMSULOSIN HCL 0.4 MG CAP.SR.24H PO SCH (21:00)
[2018-03-01] MEDS: EZETIMIBE 10 MG TABLET PO SCH (21:00)
[2018-03-01] MEDS: LATANOPROST OPHT DROP 2.5 ML BOTTLE LEFTEYE SCH (21:00)
[2018-03-01] MEDS: INSULIN REGULAR, HUMAN 300 UNIT/3 ML VIAL SQ PRN (21:57)
[2018-03-01] MEDS ORDERED: LEVOFLOXACIN 250 MG TABLET PO SCH (22:00)
--- NOTE | 2018-03-01 22:00 | NUR ---
received to care, up in arleen chair, calm, but confused, and disoriented. bedtime doses of seroquel and depakote were both held, due to b/p of 106/62, and appearing lethargic. 1:1 sitter remains at side for safety. as of 2199, he appears to be asleep. no distress noted. will continue to monitor closely.
[2018-03-02] MEDS: BLOOD SUGAR DIAGNOSTIC 1 EACH STRIP VI SCH ×4 (06:17→21:43)
--- NOTE | 2018-03-02 06:30 | NUR ---
slept 8.5 hours. assisted with am care, and shower. remains combative, at times. currently up in arleen chair. sitter remains at side.
[2018-03-02 07:30] VITALS: BP 124/67
[2018-03-02] MEDS: VALPROIC ACID 250 MG/5 ML LIQUID UDC PO SCH ×4 (08:20→21:00)
[2018-03-02] MEDS: QUETIAPINE FUMARATE 200 MG TABLET PO SCH ×4 (08:21→21:00)
[2018-03-02] MEDS: DOCUSATE SODIUM 100 MG CAPSULE PO SCH ×2 (08:21→21:00)
[2018-03-02] MEDS: GLIMEPIRIDE 2 MG TABLET PO SCH (08:21)
[2018-03-02] MEDS: ASPIRIN 81 MG TAB.CHEW PO SCH (08:21)
[2018-03-02] MEDS: METOPROLOL SUCCINATE XL 25 MG TAB.SR.24H PO SCH (08:21)
[2018-03-02] MEDS: Z GUARD REMEDY PASTE 57 GM TUBE TOP SCH ×2 (08:22→21:43)
[2018-03-02] MEDS: INSULIN REGULAR, HUMAN 300 UNIT/3 ML VIAL SQ PRN ×2 (08:24→17:27)
[2018-03-02] MEDS: CLOBETASOL PROPIONATE 0.05% OINT 15 GM TUBE TOP SCH ×2 (08:28→21:00)
[2018-03-02] MEDS: LINAGLIPTIN 5 MG TABLET PO SCH (08:51)
--- NOTE | 2018-03-02 13:17 | NUR ---
PATIENT WAS ASSISTED WITH TOILETING IN THE BATHROOM. PT IS NOT COOPERATIVE, DISORGANIZED, NON-SENSICAL. PT WAS TRYING TO SIT ON THE FLOOR, GRAB OBJECTS AND SWING HIS ARMS. PT BUMPED HIS HEAD AGAINST DOOR FRAME. NO FALL. PT WAS NOTED TO HAVE A SMALL BUMP ABOVE HIS RIGHT EYEBROW. SKIN IS INTACT. NO SIGNS OF PAIN. MENTAL STATUS IS AT BASELINE. JOSE M BLACKMON NP WAS NOTIFIED. NO NEW ORDERS AT THIS TIME. PT IS TO BE OBSERVED FOR ANY SIGNS OF DISTRESS.
[2018-03-02] MEDS: LORAZEPAM 0.5 MG TABLET PO SCH ×3 (14:54→21:00)
[2018-03-02 15:58] VITALS: BP 110/69
[2018-03-02] MEDS: LATANOPROST OPHT DROP 2.5 ML BOTTLE LEFTEYE SCH (21:00)
[2018-03-02] MEDS: EZETIMIBE 10 MG TABLET PO SCH (21:00)
[2018-03-02] MEDS: TAMSULOSIN HCL 0.4 MG CAP.SR.24H PO SCH (21:00)
[2018-03-02 21:02] VITALS: BP 117/74
--- NOTE | 2018-03-02 22:00 | NUR ---
received to care, lying in bed, appearing lethargic, but verbally responsive. vital signs are WNL. pt refused all PO medications, and food/fluids. 1:1 sitter remains at side for safety. as of 2200, he appears to be asleep. no distress noted. will continue to monitor closely.
[2018-03-03] MEDS: BLOOD SUGAR DIAGNOSTIC 1 EACH STRIP VI SCH ×4 (06:33→21:50)
--- NOTE | 2018-03-03 06:47 | NUR ---
slept 9.45 hours. remains calm. sitter at side, for safety.
[2018-03-03 07:30] VITALS: BP 122/75
--- NOTE | 2018-03-03 07:30 | NUR ---
on bed, resting . no discomfort noted. assisted up to chair by sitter for breakfast, tolerated well. appetite good, fluids encouraged
[2018-03-03] MEDS: INSULIN REGULAR, HUMAN 300 UNIT/3 ML VIAL SQ PRN (08:28)
[2018-03-03] MEDS: QUETIAPINE FUMARATE 200 MG TABLET PO SCH ×4 (09:20→21:50)
[2018-03-03] MEDS: LINAGLIPTIN 5 MG TABLET PO SCH (09:20)
[2018-03-03] MEDS: DOCUSATE SODIUM 100 MG CAPSULE PO SCH ×2 (09:20→21:50)
[2018-03-03] MEDS: VALPROIC ACID 250 MG/5 ML LIQUID UDC PO SCH ×4 (09:20→21:50)
[2018-03-03] MEDS: CLOBETASOL PROPIONATE 0.05% OINT 15 GM TUBE TOP SCH ×2 (09:21→21:45)
[2018-03-03] MEDS: GLIMEPIRIDE 2 MG TABLET PO SCH (09:21)
[2018-03-03] MEDS: ASPIRIN 81 MG TAB.CHEW PO SCH (09:21)
[2018-03-03] MEDS: Z GUARD REMEDY PASTE 57 GM TUBE TOP SCH ×2 (09:22→21:45)
[2018-03-03] MEDS: LORAZEPAM 0.5 MG TABLET PO SCH ×4 (09:22→21:50)
[2018-03-03] MEDS: METOPROLOL SUCCINATE XL 25 MG TAB.SR.24H PO SCH (09:23)
--- NOTE | 2018-03-03 12:00 | NUR ---
in hallway, comfortable. quiet after lunch.
[2018-03-03 15:39] VITALS: BP 103/62
--- NOTE | 2018-03-03 15:51 | NUR ---
on chair , resting. no discomfort noted quiet.
[2018-03-03 20:10] VITALS: BP 114/67
[2018-03-03] MEDS: LATANOPROST OPHT DROP 2.5 ML BOTTLE LEFTEYE SCH (21:44)
[2018-03-03] MEDS: EZETIMIBE 10 MG TABLET PO SCH (21:45)
[2018-03-03] MEDS: TAMSULOSIN HCL 0.4 MG CAP.SR.24H PO SCH (21:50)
--- NOTE | 2018-03-03 22:00 | NUR ---
Lying in bed medication compliant with hs meds crushed in pudding. 1-1 remains at bedside for fall precaution and confusion. Siderails up, Bed in lowest position with bed wheels locked.
[2018-03-04] MEDS: Z GUARD REMEDY PASTE 57 GM TUBE TOP PRN (01:10)
--- NOTE | 2018-03-04 05:55 | NUR ---
Remains resting comfortably slept 10 hours during the shift. 1-1 remains at bedside.
[2018-03-04] MEDS: BLOOD SUGAR DIAGNOSTIC 1 EACH STRIP VI SCH ×4 (07:25→21:13)
[2018-03-04 07:30] VITALS: BP 107/66
[2018-03-04] MEDS: QUETIAPINE FUMARATE 200 MG TABLET PO SCH ×4 (07:52→21:12)
[2018-03-04] MEDS: VALPROIC ACID 250 MG/5 ML LIQUID UDC PO SCH ×4 (07:52→21:12)
[2018-03-04] MEDS: GLIMEPIRIDE 2 MG TABLET PO SCH (07:52)
[2018-03-04] MEDS: ASPIRIN 81 MG TAB.CHEW PO SCH (07:52)
[2018-03-04] MEDS: DOCUSATE SODIUM 100 MG CAPSULE PO SCH ×2 (07:52→21:12)
[2018-03-04] MEDS: METOPROLOL SUCCINATE XL 25 MG TAB.SR.24H PO SCH (07:53)
[2018-03-04] MEDS: LORAZEPAM 0.5 MG TABLET PO SCH ×4 (07:53→21:12)
[2018-03-04] MEDS: LINAGLIPTIN 5 MG TABLET PO SCH (07:54)
[2018-03-04] MEDS: CLOBETASOL PROPIONATE 0.05% OINT 15 GM TUBE TOP SCH ×2 (09:05→21:12)
[2018-03-04] MEDS: Z GUARD REMEDY PASTE 57 GM TUBE TOP SCH ×2 (09:05→21:12)
[2018-03-04 15:52] VITALS: BP 112/82
[2018-03-04 20:35] VITALS: BP 110/60
[2018-03-04] MEDS: LATANOPROST OPHT DROP 2.5 ML BOTTLE LEFTEYE SCH (21:12)
[2018-03-04] MEDS: EZETIMIBE 10 MG TABLET PO SCH (21:12)
[2018-03-04] MEDS: TAMSULOSIN HCL 0.4 MG CAP.SR.24H PO SCH (21:12)
[2018-03-04] MEDS: INSULIN REGULAR, HUMAN 300 UNIT/3 ML VIAL SQ PRN (21:21)
--- NOTE | 2018-03-04 23:15 | NUR ---
2100--HS blood sugar taken at 163. 3U insulin administered per sliding scale. PO meds administered as ordered.
[2018-03-05] MEDS: BLOOD SUGAR DIAGNOSTIC 1 EACH STRIP VI SCH (06:29)
[2018-03-05 07:30] VITALS: BP 109/90
[2018-03-05] MEDS: LORAZEPAM 0.5 MG TABLET PO SCH (08:41)
[2018-03-05] MEDS: VALPROIC ACID 250 MG/5 ML LIQUID UDC PO SCH (08:41)
[2018-03-05] MEDS: ASPIRIN 81 MG TAB.CHEW PO SCH (08:41)
[2018-03-05] MEDS: QUETIAPINE FUMARATE 200 MG TABLET PO SCH (08:41)
[2018-03-05] MEDS: DOCUSATE SODIUM 100 MG CAPSULE PO SCH (08:41)
[2018-03-05] MEDS: Z GUARD REMEDY PASTE 57 GM TUBE TOP SCH (08:42)
[2018-03-05] MEDS: LINAGLIPTIN 5 MG TABLET PO SCH (08:42)
[2018-03-05] MEDS: GLIMEPIRIDE 2 MG TABLET PO SCH (08:42)
[2018-03-05] MEDS: CLOBETASOL PROPIONATE 0.05% OINT 15 GM TUBE TOP SCH (08:42)
[2018-03-05 08:43] VITALS: BP 109/90
[2018-03-05] MEDS: METOPROLOL SUCCINATE XL 25 MG TAB.SR.24H PO SCH (08:43)
--- NOTE | 2018-03-05 09:35 | NUR ---
GPS: Nursing Notes: Refusing Pictures To Be Taken: Patient refusing for pictures to be taken, constantly moving, uncooperative, continue with treatment plan.
--- NOTE | 2018-03-05 11:00 | NUR ---
GPS: Nursing Notes: Discharge Notes: Patient is awake and responding to his name, cooperative with nursing care at this time, compliant with his medications, denies any SI/HI, denies any AH/VH, denies any pain or discomfort at this time, discharge to [facility] [place] [address] [place] [address] , report given to Aleksandar RN air traffic control supervisor, transported via ambulance. handy worker spoke with patient's daughter Nicole [[phone]] who is aware and agreeable to discharge plans. Patient will follow up with Dr. Alcantara (Psychiatrist) and Dr. Rutherford (Quarry Worker) at the facility for aftercare.
== END 2018-03-05 11:00 | DRG 885 ==
LOC: ER 19:43 → GPS 22:37
PROVIDERS: ADMIT Psychiatry & Neurology Psychiatry; ATTEND Internal Medicine
DX: F25.0 Schizoaffective disorder, bipolar type (principal); E11.65 Type 2 diabetes mellitus with hyperglycemia; E87.2 Acidosis; N39.0 Urinary tract infection, site not specified; F03.91 Unspecified dementia, unspecified severity, with behavioral disturbance; L40.9 Psoriasis, unspecified; K21.9 Gastro-esophageal reflux disease without esophagitis; E78.5 Hyperlipidemia, unspecified; Z79.899 Other long term (current) drug therapy; Z79.82 Long term (current) use of aspirin; Z79.84 Long term (current) use of oral hypoglycemic drugs; M62.81 Muscle weakness (generalized); Z91.81 History of falling; E88.09 Other disorders of plasma-protein metabolism, not elsewhere classified; K59.00 Constipation, unspecified; F41.9 Anxiety disorder, unspecified; E78.00 Pure hypercholesterolemia, unspecified; S62.306D Unspecified fracture of fifth metacarpal bone, right hand, subsequent encounter for fracture with routine healing; X58.XXXD Exposure to other specified factors, subsequent encounter; M19.041 Primary osteoarthritis, right hand; M85.80 Other specified disorders of bone density and structure, unspecified site; R21 Rash and other nonspecific skin eruption; H40.9 Unspecified glaucoma; N40.0 Benign prostatic hyperplasia without lower urinary tract symptoms; I10 Essential (primary) hypertension
CPT/HCPCS: 36415; 70030-TC; 70450; 71045; 73130; 80164; 80307; 83605; 83735; 84100; 84443; 85025; 85730; 87040; 87086; 93005; 97112; 97116; A4663; C1758; G0480; G0480-TC; J1200; J1630; J1815; J2060; Q0163